=== PATIENT | male | born 1960 ===

== ENCOUNTER 2020-09-10 07:58 | Day surgery (SDC) | payer OTHER | END 2020-09-10 14:30 | disposition home or self-care (01) | LOC: AMB-ENDOS 07:58 | PROVIDERS: ATTEND Surgery | DX: D12.3 Benign neoplasm of transverse colon (principal); K62.1 Rectal polyp; K29.50 Unspecified chronic gastritis without bleeding; K44.9 Diaphragmatic hernia without obstruction or gangrene; Z20.822 Contact with and (suspected) exposure to COVID-19; Z12.11 Encounter for screening for malignant neoplasm of colon ==